=== PATIENT | female | born 1945 | race Caucasian/White ===

== ENCOUNTER 2017-07-12 09:39 | Day surgery (SDC) | payer MEDICARE, SELFPAY ==
[~2017-07-12] VITALS: Ht 175.3 cm; Wt 107.1 kg
[~2017-07-12 09:39] MED LIST: Bactrim Ds Tab1 EACH PO; CEPH500 PO; ESTR2 PO; FLUO20 PO; HYDHCL25 PO; MINO100 PO; OXYACE5T PO; RXOXYACE PO; Triamcinolone A15 G3 TP
== END 2017-07-12 12:45 | disposition home or self-care (01) ==
LOC: ORSCSDS 09:39
PROVIDERS: Student in an Organized Health Care Education/Training Program
PROC: 0QBN0ZZ Excision of Right Metatarsal, Open Approach (ICD-10-PCS; principal; 2017-07-12 11:00)
DX: M21.621 Bunionette of right foot (principal); M79.671 Pain in right foot; Z79.899 Other long term (current) drug therapy
CPT/HCPCS: J0690; J2250; J3010

== ENCOUNTER 2021-04-19 09:33 | Day surgery (SDC) | payer MEDICARE ==
[~2021-04-19] VITALS: Ht 175.3 cm; Wt 105.9 kg
[2021-04-19] MEDS ORDERED: IBUP800 PO (09:58)
[2021-04-19] MEDS ORDERED: OMEP20ER PO (10:32)
--- NOTE | 2021-04-19 13:36 | NUR ---
04/19/21 [address]ATE ENTRY DR[address] RÍOS IN WITH PT AT 1120. CORRECT PT, SITE, PROCEEDURE AND ALLERGIES CONFIRMED. PT ELECTED TO PROCEED WITH SHOULDER BLOCK. RELAXING MEDICATION PROVIDED BY DR. RÍOS. VSS. PT TOLERATED WELL
== END 2021-04-19 14:14 | disposition home or self-care (01) ==
LOC: ORSCSDS 09:33
PROVIDERS: Orthopaedic Surgery
PROC: 0RNJ4ZZ Release Right Shoulder Joint, Percutaneous Endoscopic Approach (ICD-10-PCS; principal; 2021-04-19 10:45)
PROC: 0LM14ZZ Reattachment of Right Shoulder Tendon, Percutaneous Endoscopic Approach (ICD-10-PCS; principal; 2021-04-19 10:45)
DX: M75.121 Complete rotator cuff tear or rupture of right shoulder, not specified as traumatic (principal); M75.21 Bicipital tendinitis, right shoulder; M75.41 Impingement syndrome of right shoulder; M19.011 Primary osteoarthritis, right shoulder; E66.9 Obesity, unspecified; Z68.34 Body mass index [BMI] 34.0-34.9, adult; F32.A Depression, unspecified; Z79.899 Other long term (current) drug therapy
CPT/HCPCS: C1713; J0171; J0690; J1100; J2250; J2405; J2704; J3010; J7120

== ENCOUNTER 2022-03-14 08:47 | Day surgery (SDC) | payer MEDICARE ==
[~2022-03-14] VITALS: Ht 175.3 cm; Wt 98.8 kg
[~2022-03-14 08:47] MED LIST changes: +IBUP800 PO; +OMEP20ER PO
--- NOTE | 2022-03-14 09:07 | NUR ---
03/14/22 0907 Angi Packer CALL LIGHT WITHIN REACH. ONDINAIN IN AT 0905 IN LEFT EYE AND BEATRIS AT 0910
== END 2022-03-14 10:32 | disposition home or self-care (01) ==
LOC: ORSCSDS 08:47
PROVIDERS: Student in an Organized Health Care Education/Training Program
PROC: 08DK3ZZ Extraction of Left Lens, Percutaneous Approach (ICD-10-PCS; principal; 2022-03-14 10:00)
DX: H25.12 Age-related nuclear cataract, left eye (principal); K21.9 Gastro-esophageal reflux disease without esophagitis; Z79.899 Other long term (current) drug therapy
CPT/HCPCS: J2001; J2250; J2405; J3010; J7040; V2632

== ENCOUNTER 2022-04-04 07:10 | Day surgery (SDC) | payer MEDICARE ==
[~2022-04-04] VITALS: Ht 175.3 cm; Wt 98.4 kg
== END 2022-04-04 08:56 | disposition home or self-care (01) ==
LOC: ORSCSDS 07:10
PROVIDERS: Student in an Organized Health Care Education/Training Program
PROC: 08RJ3JZ Replacement of Right Lens with Synthetic Substitute, Percutaneous Approach (ICD-10-PCS; principal; 2022-04-04 08:15)
DX: H25.11 Age-related nuclear cataract, right eye (principal); H21.81 Floppy iris syndrome; K21.9 Gastro-esophageal reflux disease without esophagitis; Z79.899 Other long term (current) drug therapy; E66.9 Obesity, unspecified; Z68.32 Body mass index [BMI] 32.0-32.9, adult
CPT/HCPCS: J2001; J2250; J3010; J7040; V2632